=== PATIENT | male | born 1970 | race Two or more races ===

== ENCOUNTER 2022-05-28 14:45 | Emergency (ER) | payer OTHER ==
[~2022-05-28] VITALS: Ht 175.3 cm; Wt 90.7 kg
[2022-05-28 14:57] VITALS: BP 109/74
== END 2022-05-28 16:33 | disposition home or self-care (01) ==
LOC: ER 14:54
DX: M79.641 Pain in right hand (principal); Z60.2 Problems related to living alone
CPT/HCPCS: 73130-TC